=== PATIENT | female | born 1970 | race Caucasian/White ===

== ENCOUNTER 2016-12-27 01:49 | Inpatient (IN) | payer BC ==
[~2016-12-27] VITALS: Ht 172.7 cm; Wt 68.0 kg
[2016-12-27 02:12] LABS: BASOPHILS % (AUTO) 1.3 % (0.0-2.0); EOSINOPHILS % (AUTO) 1.1 % (0.0-3.0); LYMPHOCYTES % (AUTO) 43.5 % (20.0-45.0); MEAN CORPUSCULAR HEMOGLOBIN 28.8 PG (27.0-31.0); MEAN CORPUSCULAR HGB CONC 32.9 G/DL (32.0-36.0); MEAN CORPUSCULAR VOLUME 88 FL (80-99); MEAN PLATELET VOLUME 6.1 FL (6.5-10.1); MONOCYTES % (AUTO) 7.3 % (1.0-10.0); NEUTROPHILS % (AUTO) 46.9 % (45.0-75.0); PLATELET COUNT 333 K/UL (150-450); RED BLOOD COUNT 5.11 M/UL (4.20-5.40); RED CELL DISTRIBUTION WIDTH 13.1 % (11.6-14.8)
[2016-12-27] MEDS ORDERED: NKM (02:14)
[2016-12-27] MEDS ORDERED: Diltiazem 25mg/5ml IV ONE (02:15)
[2016-12-27 02:19] LABS: PROTHROMBIN TIME 10.1 SEC (9.30-11.50)
[2016-12-27 02:22] LABS: TROPONIN I < 0.30 ng/mL (<=0.30)
[2016-12-27 02:23] LABS: ALANINE AMINOTRANSFERASE 13 U/L (3-33); ALBUMIN/GLOBULIN RATIO 1.4 (1.0-2.7); ASPARTATE AMINO TRANSFERASE 28 U/L (5-40); CALCIUM 9.8 mg/dL (8.6-10.2); CARBON DIOXIDE 19 mEQ/L (20-30); CREATININE 0.9 mg/dL (0.5-0.9); GLOMERULAR FILTRATION RATE > 60 mL/min (>60); HEMOLYSIS 6; TOTAL PROTEIN 7.7 g/dL (6.6-8.7)
[2016-12-27 02:24] LABS: ANION GAP 23 (5-15); CHLORIDE 96 mEQ/L (98-107); POTASSIUM 3.1 mEQ/L (3.4-4.9); SODIUM 138 mEQ/L (135-145)
[2016-12-27 02:35] LABS: CKMB 3.1 ng/mL (< 3.8)
[2016-12-27] MEDS ORDERED: Milk of Magnesia 30ml Ud ORAL PRN (03:15)
[2016-12-27] MEDS: Metoprolol 25mg tab ORAL SCH ×2 (03:15→08:43)
[2016-12-27] MEDS ORDERED: Zolpidem 5mg tab ORAL PRN (03:15)
[2016-12-27] MEDS ORDERED: Heparin 25,000u/D5W 500ml 500 ML IV SCH ×2 (03:15→14:30)
[2016-12-27 03:41] VITALS: BP 113/82
--- NOTE | 2016-12-27 03:47 | Emergency Room Report ---
History of Present Illness General Chief Complaint: Chest Pain Source: Patient Present Illness HPI Patient reports that 30 minutes prior to arrival she was driving to that of a friend at the airport She began feeling palpitations and chest pressure As her symptoms continue to worsen Patient was concerning came to the emergency room Patient had 3/10 chest pain heaviness along with palpitations denies any headache or visual changes denies any medications denies any stimulants Allergies: Coded Allergies: PENICILLINS (Verified Allergy, Unknown, 12/27/16) Patient History Past Medical History: see triage record Pertinent Family History: none Last Menstrual Period: LAST WEEK Now: No Reviewed Nursing Documentation: PMH: Agreed, PSxH: Agreed Review of Systems All Other Systems: negative except mentioned in HPI Physical Exam Vital Signs Date Time Temp Pulse Resp B/P Pulse Ox O2 Delivery O2 Flow Rate FiO2 12/27/16 01:55 96.4 176 23 118/99 100 Room Air Sp02 EP Interpretation: reviewed, normal General Appearance: moderate distress - Appears uncomfortable Head: normocephalic, atraumatic Eyes: bilateral eye EOMI, bilateral eye PERRL ENT: hearing grossly normal, normal pharynx, TMs + canals normal, uvula midline Neck: full range of motion, supple, no meningismus, no bony tend Respiratory: lungs clear, normal breath sounds, no rhonchi, no respiratory distress, no retraction, no accessory muscle use Cardiovascular #1: normal peripheral pulses, no edema, no gallop, no JVD, no murmur, tachycardia Gastrointestinal: normal bowel sounds, non tender, soft, no mass, no organomegaly, non-distended, no guarding, no hernia, no pulsatile mass, no rebound Genitourinary: no CVA tenderness Musculoskeletal: normal inspection Neurologic: oriented x3, responsive, computer forensic specialist III-XII nml as tested, motor strength/ tone normal, sensory intact Psychiatric: mood/affect normal Skin: normal color, no rash, warm/dry, palpation normal Lymphatic: normal inspection, no adenopathy Procedures Critical Care Time Critical Care Time 50 minutes for initial critical status Clinical findings concerning for cardiac/cardiopulmonary injury Not including any procedural time Medical Decision Making Diagnostic Impression: Primary Impression: SVT (supraventricular tachycardia) ER Course Patient is a fairly complex patient with multiple differential to consideration including but not limited to cardiac cardiopulmonary and vascular emergencies A patient's initial EKG shows likely svt, however given the rate patient was provided Cardizem initially This did result in a cardioversion medically to sinus rhythm Patient is time does feel significantly improved Was provided aspirin and admitted for further inpatient care Labs Test 12/27/16 01:50 12/27/16 02:10 White Blood Count 8.0 K/UL (4.8-10.8) Red Blood Count 5.11 M/UL (4.20-5.40) Hemoglobin 14.7 G/DL (12.0-16.0) Hematocrit 44.8 % (37.0-47.0) Mean Corpuscular Volume 88 FL (80-99) Mean Corpuscular Hemoglobin 28.8 PG (27.0-31.0) Mean Corpuscular Hemoglobin Concent 32.9 G/DL (32.0-36.0) Red Cell Distribution Width 13.1 % (11.6-14.8) Platelet Count 333 K/UL (150-450) Mean Platelet Volume 6.1 FL (6.5-10.1) Neutrophils (%) (Auto) 46.9 % (45.0-75.0) Lymphocytes (%) (Auto) 43.5 % (20.0-45.0) Monocytes (%) (Auto) 7.3 % (1.0-10.0) Eosinophils (%) (Auto) 1.1 % (0.0-3.0) Basophils (%) (Auto) 1.3 % (0.0-2.0) Prothrombin Time 10.1 SEC (9.30-11.50) Prothromb Time International Ratio 1.0 (0.9-1.1) Activated Partial Thromboplast Time 29 SEC (23-33) Sodium Level 138 mEQ/L (135-145) Potassium Level 3.1 mEQ/L (3.4-4.9) Chloride Level 96 mEQ/L (98-107) Carbon Dioxide Level 19 mEQ/L (20-30) Anion Gap 23 (5-15) Blood Urea Nitrogen 20 mg/dL (7-23) Creatinine 0.9 mg/dL (0.5-0.9) Estimat Glomerular Filtration Rate > 60 mL/min (>60) Glucose Level 126 mg/dL (74-106) Calcium Level 9.8 mg/dL (8.6-10.2) Total Bilirubin 0.3 mg/dL (0.0-1.2) Aspartate Amino Transf (AST/SGOT) 28 U/L (5-40) Alanine Aminotransferase (ALT/SGPT) 13 U/L (3-33) Alkaline Phosphatase 62 U/L (35-104) Total Creatine Kinase 230 U/L (26-140) Creatine Kinase MB 3.1 ng/mL (< 3.8) Creatine Kinase MB Relative Index 1.3 Troponin I < 0.30 ng/mL (<=0.30) Pro-B-Type Natriuretic Peptide 47 pg/mL (0-125) Total Protein 7.7 g/dL (6.6-8.7) Albumin 4.5 g/dL (3.5-5.2) Globulin 3.2 g/dL Albumin/Globulin Ratio 1.4 (1.0-2.7) Thyroid Stimulating Hormone (TSH) 1.980 uIU/mL (0.300-4.500) Free Thyroxine 1.32 ng/dL (0.86-1.85) Urine Opiates Screen Negative (NEGATIVE) Urine Barbiturates Screen Negative (NEGATIVE) Phencyclidine (PCP) Screen Negative (NEGATIVE) Urine Amphetamines Screen Negative (NEGATIVE) Urine Benzodiazepines Screen Negative (NEGATIVE) Urine Cocaine Screen Negative (NEGATIVE) Urine Marijuana (THC) Screen Negative (NEGATIVE) EKG Diagnostic Results Rate: tachycardiac Rhythm: other - svt ST Segments: other - ST and T-wave changes abnormal Rhythm Strip Diag. Results EP Interpretation: yes Rate: 160 Rhythm: no PVC's, no ectopy, other - SVT Chest X-Ray Diagnostic Results EP Interpretation: Yes Findings: no consolidation, no effusion, no pneumothorax Number of Views: 1 Last Vital Signs Date Time Temp Pulse Resp B/P Pulse Ox O2 Delivery O2 Flow Rate FiO2 12/27/16 02:08 166 111/94 12/27/16 01:59 23 Room Air 12/27/16 01:55 96.4 100 Status: improved Disposition: ADMITTED INPATIENT Condition: Serious Referrals: NOT CHOSEN IPA/,REFERRING (PCP) EDGARD JORGE D.O. December 27, 2016 03:47
[2016-12-27 05:13] VITALS: BP 103/68
[2016-12-27 06:15] VITALS: BP 108/80
[2016-12-27 06:45] VITALS: BP 125/86
[2016-12-27 08:00] VITALS: BP 123/77
[2016-12-27] MEDS ORDERED: Aspirin Baby 81mg ORAL SCH (09:00)
[2016-12-27 12:00] VITALS: BP 102/68
[2016-12-27] MEDS ORDERED: Heparin 5000 units/ml inj IV ONE (14:30)
--- NOTE | 2016-12-27 15:01 | Cardiac Electrophysiology PN ---
Subjective Subjective [id number] Objective Last 24 Hour Vital Signs Date Time Temp Pulse Resp B/P Pulse Ox O2 Delivery O2 Flow Rate FiO2 12/27/16 12:00 98.1 56 18 102/68 97 Room Air 12/27/16 12:00 57 12/27/16 08:43 72 123/77 12/27/16 08:00 97.2 72 18 123/77 97 Room Air 12/27/16 08:00 74 12/27/16 06:45 97.4 65 20 125/86 96 Room Air 12/27/16 06:40 97.0 66 12 108/80 100 Room Air 12/27/16 06:15 66 12 108/80 100 Room Air 12/27/16 05:13 67 12 103/68 100 Room Air 12/27/16 03:41 97.0 85 19 113/82 99 Room Air 12/27/16 02:08 166 111/94 12/27/16 01:59 166 23 Room Air 12/27/16 01:55 96.4 176 23 118/99 100 Room Air Intake and Output 12/26/16 12/27/16 19:00 07:00 Intake Total 500 ml Balance 500 ml Intake IV Total 500 ml # Voids 2 Laboratory Tests Test 12/27/16 01:50 12/27/16 02:10 12/27/16 13:10 White Blood Count 8.0 K/UL (4.8-10.8) Red Blood Count 5.11 M/UL (4.20-5.40) Hemoglobin 14.7 G/DL (12.0-16.0) Hematocrit 44.8 % (37.0-47.0) Mean Corpuscular Volume 88 FL (80-99) Mean Corpuscular Hemoglobin 28.8 PG (27.0-31.0) Mean Corpuscular Hemoglobin Concent 32.9 G/DL (32.0-36.0) Red Cell Distribution Width 13.1 % (11.6-14.8) Platelet Count 333 K/UL (150-450) Mean Platelet Volume 6.1 FL (6.5-10.1) L Neutrophils (%) (Auto) 46.9 % (45.0-75.0) Lymphocytes (%) (Auto) 43.5 % (20.0-45.0) Monocytes (%) (Auto) 7.3 % (1.0-10.0) Eosinophils (%) (Auto) 1.1 % (0.0-3.0) Basophils (%) (Auto) 1.3 % (0.0-2.0) Prothrombin Time 10.1 SEC (9.30-11.50) Prothromb Time International Ratio 1.0 (0.9-1.1) Activated Partial Thromboplast Time 29 SEC (23-33) 57 SEC (23-33) H Sodium Level 138 mEQ/L (135-145) Potassium Level 3.1 mEQ/L (3.4-4.9) L Chloride Level 96 mEQ/L (98-107) L Carbon Dioxide Level 19 mEQ/L (20-30) L Anion Gap 23 (5-15) H Blood Urea Nitrogen 20 mg/dL (7-23) Creatinine 0.9 mg/dL (0.5-0.9) Estimat Glomerular Filtration Rate > 60 mL/min (>60) Glucose Level 126 mg/dL (74-106) H Calcium Level 9.8 mg/dL (8.6-10.2) Total Bilirubin 0.3 mg/dL (0.0-1.2) Aspartate Amino Transf (AST/SGOT) 28 U/L (5-40) Alanine Aminotransferase (ALT/SGPT) 13 U/L (3-33) Alkaline Phosphatase 62 U/L (35-104) Total Creatine Kinase 230 U/L (26-140) H Creatine Kinase MB 3.1 ng/mL (< 3.8) Creatine Kinase MB Relative Index 1.3 Troponin I < 0.30 ng/mL (<=0.30) Pro-B-Type Natriuretic Peptide 47 pg/mL (0-125) Total Protein 7.7 g/dL (6.6-8.7) Albumin 4.5 g/dL (3.5-5.2) Globulin 3.2 g/dL Albumin/Globulin Ratio 1.4 (1.0-2.7) Thyroid Stimulating Hormone (TSH) 1.980 uIU/mL (0.300-4.500) Free Thyroxine 1.32 ng/dL (0.86-1.85) Urine Opiates Screen Negative (NEGATIVE) Urine Barbiturates Screen Negative (NEGATIVE) Phencyclidine (PCP) Screen Negative (NEGATIVE) Urine Amphetamines Screen Negative (NEGATIVE) Urine Benzodiazepines Screen Negative (NEGATIVE) Urine Cocaine Screen Negative (NEGATIVE) Urine Marijuana (THC) Screen Negative (NEGATIVE) BAKARI GARNICA December 27, 2016 15:01
[2016-12-27] MEDS ORDERED: CARDIZEM CD180 MG ORAL (15:25)
--- NOTE | 2016-12-27 16:36 | Diagnostic Imaging Report ---
Indication: Chest pain Technique: Single portable AP view of the chest. Findings: Comparison: None. The bones and extra pulmonary soft tissues, cardiomediastinal silhouette, pulmonary vasculature and parenchyma, and pleural surfaces are unremarkable. IMPRESSION: Negative portable AP chest .
--- NOTE | 2016-12-27 17:16 | History and Physical Report ---
DATE OF ADMISSION: 12/27/2016 CHIEF COMPLAINT: Palpitations and chest pain. HISTORY OF PRESENT ILLNESS: The patient is a 46-year-old female, who was in her usual state of health. She was driving to the airport to picking supervisor her boyfriend and she felt palpitations and chest pressure. The boyfriend drove her back, however, on the way she felt worse and her heart was racing and she was getting short of breath and had some chest pressure. She came to the emergency room here and was found to be in SVT and her heart rate being around 170s. The patient was given Cardizem in the emergency room and she converted to sinus rhythm. Currently, she feels fine now. PAST MEDICAL HISTORY: The patient never had any history of SVT before. She did have history of kidney stones. She had right-sided ureter stent that [facility] in May of last year, which was eventually removed. MEDICATIONS: None. ALLERGIES: Penicillin causing a rash. SOCIAL HISTORY: The patient has no history of smoking or alcohol abuse. She is a teacher at the [employer]. REVIEW OF SYSTEMS: Noncontributory except what was mentioned. PHYSICAL EXAMINATION: GENERAL: The patient is a pleasant female, in no acute distress. VITAL SIGNS: Blood pressure 123/77, pulse 72, temperature 97.2 degrees, respiratory rate is 18. HEENT: Adena conjunctivae. Anicteric sclerae. NECK: Supple. LUNGS: Clear to auscultation. HEART: S1 and S2 without murmurs or rubs. ABDOMEN: Soft and nontender. EXTREMITIES: No cyanosis or edema. LABORATORY AND DIAGNOSTIC DATA: The chemistry panel shows serum sodium 138, potassium 3.8, chloride 96, CO2 of 19, BUN is 20, creatinine 0.9, and blood sugar is 126. CBC shows a WBC of 8000, hematocrit 44.8, hemoglobin is 14.7, and platelets 393,000. The TSH was 1.9. The first troponin was negative. ASSESSMENT AND PLAN: This is a 46-year-old female who was admitted with supraventricular tachycardia, which was converted to sinus rhythm after she was given Cardizem in the emergency room and I started the patient on beta-blockers. An echocardiogram will be obtained to rule out any structural valve abnormality. Also troponin level will be checked to make sure the patient does not have any cardiac ischemia. The patient will be seen by Dr. Coppola in Cardiology consultation. Potassium will be repleted and bilirubin will need to be checked as well as magnesium level. Juan Diego Voss M.D. DR: MIR JOB#: [id number] CC:
--- NOTE | 2016-12-28 00:48 | Consultation ---
DATE OF CONSULTATION: 12/27/2016 CARDIAC ELECTROPHYSIOLOGY CONSULTATION CONSULTING PHYSICIAN: William Coppola M.D. REFERRING PHYSICIAN: Juan Diego Voss M.D. REASON FOR CONSULTATION: Supraventricular tachycardia. HISTORY OF PRESENT ILLNESS: The patient is a very pleasant 46-year-old healthy lady with no past medical history, came to the emergency room complaining of palpitation while she was driving to a friend at airport. The patient came to the emergency room and was found to be in supraventricular tachycardia at a rate of 167 beats per minute based on a 12-lead electrocardiogram. The patient received Cardizem IV that probably converted the patient to sinus rhythm. Another 12-lead EKG in sinus rhythm showed no evidence of pre-excitation. The patient was admitted to telemetry and a Cardiac Electrophysiology consultation was obtained for further evaluation and management. PAST MEDICAL HISTORY: None. FAMILY HISTORY: Noncontributory. 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 REVIEW OF SYSTEMS: Her review of systems was thoroughly performed and was negative other than what was mentioned in the history of present illness. PHYSICAL EXAMINATION: VITAL SIGNS: Blood pressure is now 102/68, pulse is 70, respirations 18, and she is afebrile. HEAD AND NECK: Shows no JVD or carotid bruits. LUNGS: Clear. CARDIOVASCULAR: Shows regular S1 and S2 with no gallop or murmur. ABDOMEN: Soft and nontender. EXTREMITIES: Showed no pitting edema. LABORATORY AND DIAGNOSTIC DATA: Her EKG was as mentioned above. LABS: White count of 8, hemoglobin 14.7, hematocrit 44.8, and platelet count of 333,00. INR is 1. Sodium 138, potassium 3.1, BUN of 20, and creatinine 0.9. CK is 230. Troponin is negative. Her TSH and T4 are within normal range. ASSESSMENT AND PLAN: Episodes of supraventricular tachycardia with a heart rate up to 170 beats per minute. Morphology of the supraventricular tachycardia on 12-lead EKG is suggestive of atrioventricular halie reentrant tachycardia. There is no discrete T-waves. The fact that she is promptly converted to sinus rhythm with Cardizem also suggestive that this may be an atrioventricular halie dependent arrhythmia like atrioventricular halie reentrant tachycardia or atrioventricular reentrant tachycardia. I had a long discussion with the patient regarding the options including no therapy versus medical therapy as well as electrophysiologic study and ablation. Electrophysiology laboratory is not available at [facility], but this is her first episode that she knows of. Thyroid function is within normal range. The patient will be traveling [place], so I will start the patient on Cardizem CD 180 mg daily and her young age supraventricular tachycardia to proceed with electrophysiologic study and ablation. That can be discussed with the patient as an outpatient as well. There is no point of anticoagulation with heparin and heparin drip will be discontinued. I already stopped aspirin as well. She has hypokalemia, potassium was replaced. Thank you very much, Dr. Voss, for allowing me to participate in the care of this patient. Please do not hesitate to contact me for any questions regarding my evaluation. William Coppola M.D. DR: MARLA JOB#: [id number] CC:
[2016-12-28] MEDS ORDERED: Diltiazem CD 180mg cap ORAL SCH (09:00)
--- NOTE | 2016-12-28 16:01 | Discharge Summary ---
Discharge Summary Hospital Course Date of Admission December 27, 2016 at 02:10 Date of Discharge December 27, 2016 at 16:02 Admitting Diagnosis SUPRAVENTRICULAR TACHYCARDIA HPI Tea Ochoa is a 46 year old female who was admitted on December 27, 2016 at 02:10 for Supraventricular Tachycardia Hospital Course [id number] Discharge Discharge Disposition Patient was discharged to Home (01) Discharge Diagnoses: Vanessa Du NP December 28, 2016 16:01
--- NOTE | 2016-12-29 06:46 | Discharge Summary 2 SIG ---
DATE OF ADMISSION: 12/27/2016 DATE OF DISCHARGE: 12/27/2016 SPRING UPHOLSTERER: William Coppola M.D. BRIEF HOSPITAL COURSE: The patient is a 46-year-old female, who was in her usual state of health. She was driving to the airport to pharmacy picking technician her boyfriend and she felt palpitations and chest pressure. Symptoms got worse and felt her heart racing and was short of breath. She came to emergency room and on evaluation was found to be in SVT heart rate around 170s. She was given IV Cardizem and converted to sinus rhythm. She was admitted to telemetry for further evaluation and was started on heparin drip. Dr. Coppola was consulted. Another 12-lead EKG showed sinus rhythm with no evidence of pre-excitation. The patient had episodes of supraventricular tachycardia. 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 There is no discrete T-wave and the fact that she promptly converted to sinus rhythm with Cardizem is also suggestive that this may be an atrioventricular halie dependent arrhythmia like atrioventricular halie reentrant tachycardia or atrioventricular reentrant tachycardia. Discussion was made including no therapy versus medical therapy versus electrophysiologic study and ablation. Her thyroid function remained normal. The patient will be traveling. The patient was started on Cardizem CD 100 mg 80 daily and given her young age advised to proceed with electrophysiologic study and ablation, which can be done as an outpatient. There was no point in anticoagulation with heparin and heparin drip was discontinued as well as aspirin. Potassium was replaced and the patient was eventually discharged home. Advised to follow up with PMD. FINAL DIAGNOSES: 1. Supraventricular tachycardia. 2. Hypokalemia. Juan Diego Voss M.D. I have been assigned to dictate discharge summary on this account and I was not involved in the patient's management. Vanessa Du N.P. DR: JOSE F JOB#: [id number] CC:
== END 2016-12-27 16:02 | disposition home or self-care (01) | DRG 310 ==
LOC: EMR 02:00 → 2E 02:10 → EDBEDREQ 04:39 → 2E 06:32
DX: I47.1 Supraventricular tachycardia (principal); E87.6 Hypokalemia; Z87.442 Personal history of urinary calculi; Z88.0 Allergy status to penicillin
CPT/HCPCS: 36415; 71010; 80053; 80300; 82550; 82553; 83880; 84439; 84443; 84484; 85025; 85610; 85730; 93005; 93306; J8499